=== PATIENT | female | born 1985 ===

== ENCOUNTER → 2018-05-18 | Outpatient (CLI) | payer OTHER ==
[2018-05-18 16:35] LABS: BASOPHILS ABSOLUTE AUTO 0.04 K/mm3 (0.00-0.23); BASOPHILS PERCENT AUTO 1 % (0-2); EOSINOPHILS ABSOLUTE AUTO 0.21 K/mm3 (0.00-0.68); EOSINOPHILS PERCENT AUTO 3 % (0-6); Hematocrit 44.6 % (33.0-51.0); Hemoglobin 14.3 g/dL (11.5-16.0); IMMATURE GRAN ABSOLUTE AUTO 0.01 K/mm3 (0.00-0.10); IMMATURE GRAN PERCENT AUTO 0 % (0-1); LYMPHOCYTES ABSOLUTE AUTO 1.84 K/mm3 (0.84-5.20); LYMPHOCYTES PERCENT AUTO 29 % (21-46); MONOCYTES ABSOLUTE AUTO 0.53 K/mm3 (0.16-1.47); MONOCYTES PERCENT AUTO 8 % (4-13); Mean Corpuscular HGB Conc 32.1 g/dL (31.5-36.5); Mean Corpuscular Volume 94 fL (80-100); Mean Platelet Volume 9.2 fL (9.1-12.4); NEUTROPHILS ABSOLUTE AUTO 3.67 K/mm3 (1.96-9.15); NEUTROPHILS PERCENT AUTO 58 % (41-73); Platelet Count 347 K/mm3 (150-400); RDW Coefficient Variation 12.1 % (11.7-14.2); RDW Standard Deviation 41.8 fL (35.1-46.3); Red Blood Cell Count 4.77 M/mm3 (3.80-5.20)
[2018-05-18 16:56] LABS: Alanine Aminotransfer (ALT/SGP 43 U/L (12-78); Albumin, Blood 4.1 g/dL (3.4-5.0); Alk Phos 99 U/L (50-136); Anion Gap 8 mmol/L (6-16); Aspartate Aminotrans (AST/SGOT 24 U/L (12-37); Bilirubin, Total 0.6 mg/dL (0.1-1.0); Blood Urea Nitrogen 15 mg/dL (8-24); Bun/Creatinine Ratio 19.8 (12.0-20.0); CO2, Blood 28 mmol/L (21-32); Calcium, Blood 8.9 mg/dL (8.5-10.1); Chloride, Blood 110 mmol/L (98-108); Creatinine, Blood 0.76 mg/dL (0.40-1.00); Globulin, Blood 4.1 g/dL (2.2-4.0); Glomerular Filtration Rate >60 (60-); Glucose, Blood 87 mg/dL (70-99); Potassium, Blood 3.8 mmol/L (3.5-5.5); Sodium, Blood 146 mmol/L (136-145); Total Protein, Blood 8.2 g/dL (6.4-8.2)
[2018-05-19 13:30] LABS: Rheumatoid Factor, Serum Negative (Negative)
[2018-05-20 10:44] LABS: Antinuclear Antibody Screen Negative (Negative)
== END | disposition home or self-care (01) ==
LOC: LAB SHORT 16:00 → LAB 16:00
PROVIDERS: Physician Assistant
DX: R60.9 Edema, unspecified (principal); R21 Rash and other nonspecific skin eruption
CPT/HCPCS: 80053; 84443; 85025; 85651; 86038; 86430

== ENCOUNTER 2018-11-09 07:27 | Day surgery (SDC) | payer OTHER ==
[~2018-11-09] VITALS: Ht 160 cm; Wt 65.7 kg
[~2018-11-09 07:27] MED LIST: LORPSEER24 PO; PANT40 PO; PROBIOTIC PO; SUCR1 PO; [UNRECOGNIZED DRUG - OTHER] TOP
--- NOTE | 2018-11-09 09:44 | NUR ---
11/09/18 0944 Angelika Flor LATE ENTRY----URINE WAS TOO DILUTE FOR TEST (1.005) SO SERUM WAS SENT TO LAB BY
--- NOTE | 2018-11-09 09:45 | NUR ---
11/09/18 0945 Angelika Flor LATE ENTRY----VERBAL RESULT FOR NEGATIVE SERUM TEST RECEIVED FROM LAB PRIOR TO START OF SEDATION/PROCEDURE
== END 2018-11-09 09:34 | disposition home or self-care (01) ==
LOC: ORSCSDS 07:27
PROVIDERS: Internal Medicine Gastroenterology
PROC: 0DB68ZX Excision of Stomach, Via Natural or Artificial Opening Endoscopic, Diagnostic (ICD-10-PCS; principal; 2018-11-09 08:45)
DX: R10.13 Epigastric pain (principal); K29.70 Gastritis, unspecified, without bleeding; F41.8 Other specified anxiety disorders; Z79.899 Other long term (current) drug therapy
CPT/HCPCS: 84703; 88305; 88342; J2250; J2704; J7120

== ENCOUNTER → 2018-11-18 | Outpatient (CLI) | payer OTHER | LOC: LAB SHORT 11:27 → LAB 11:27 | DX: N39.0 Urinary tract infection, site not specified (principal) | CPT/HCPCS: 87086 ==

== ENCOUNTER → 2018-11-21 | Outpatient (CLI) | payer OTHER | LOC: LAB 12:49 → LAB SHORT 12:49 | DX: R50.9 Fever, unspecified (principal) | CPT/HCPCS: 87086 ==